=== PATIENT | male | born 1970 | race African-American/Black ===

== ENCOUNTER 2021-03-22 22:05 | Emergency (ER) | payer MEDICAID ==
[~2021-03-22] VITALS: Ht 182.9 cm; Wt 86.0 kg
[2021-03-22] MEDS ORDERED: ACETAMINOPHEN 325MG TABLET PO ONE (23:00)
[2021-03-23] MEDS ORDERED: AZIT250T12 MT (01:52)
[2021-03-23] MEDS ORDERED: IBUPROFEN 600MG TABLET PO ONE (02:15)
[2021-03-23 02:51] VITALS: BP 119/74
== END 2021-03-23 02:51 | disposition home or self-care (01) ==
LOC: ER 22:12
DX: U07.1 COVID-19 (principal); J12.82 Pneumonia due to coronavirus disease 2019
CPT/HCPCS: 71045; 87426; 99284

== ENCOUNTER 2021-03-24 04:34 | Emergency (ER) | payer MEDICAID ==
[~2021-03-24] VITALS: Ht 180.3 cm; Wt 99.0 kg
[~2021-03-24 04:34] MED LIST: AZIT250T12 MT
[2021-03-24] MEDS ORDERED: KETOROLAC 60MG/2ML VIAL IM ONE (05:00)
[2021-03-24 05:03] VITALS: BP_DIAS 95
[2021-03-24 05:21] VITALS: BP_SYST 132
== END 2021-03-24 05:57 | disposition home or self-care (01) ==
LOC: ER 04:34
DX: U07.1 COVID-19 (principal); R03.0 Elevated blood-pressure reading, without diagnosis of hypertension; Z71.89 Other specified counseling
CPT/HCPCS: 96372; 99283; J1885